=== PATIENT | female | born 1990 | race Caucasian/White ===

== ENCOUNTER → 2024-12-15 | Outpatient (REF) | payer OTHER | LOC: M WHC 08:44 → EDSTATUS 09:30 | PROVIDERS: ATTEND Nurse Practitioner Family | DX: N63.21 Unspecified lump in the left breast, upper outer quadrant (principal) | CPT/HCPCS: 76642; 77066; G0279 ==

== ENCOUNTER → 2025-06-20 | Outpatient (CLI) | payer OTHER | LOC: M WHC 12:00 | PROVIDERS: ATTEND Surgery | DX: Z80.3 Family history of malignant neoplasm of breast (principal); N63.21 Unspecified lump in the left breast, upper outer quadrant ==